=== PATIENT | female | born 1945 | race Caucasian/White ===

== ENCOUNTER 2016-07-21 07:56 | Observation (INO) | payer MEDICARE ==
[~2016-07-21 07:56] MED LIST: AMLO10TA2 PO; CARV25TA PO; CO Q100C7 PO; CYCL1TAB29 PO; DIGO1TAB59 PO; ERGO1CAP30 PO; FLUO60TA PO; FOLI1TAB4 PO; HUMALOG SQ; ISOS30TA15 PO; JANT10TA PO; JANT5TAB PO; MORP1TAB25 PO; OMEG100010 PO; OXYC1TAB36 PO; TUMS500C CHEW
[2016-07-21] MEDS ORDERED: ceFAZolin 2 GM PREMIX 50 ML IV SCH (08:30)
[2016-07-21] MEDS ORDERED: POVIDONE IODINE 5% (ANTISEPSIS KIT) 4 APPLICATIONS EACH NARE PRN (08:45)
[2016-07-21] MEDS ORDERED: CHLORHEXIDINE GLUCONATE 2 % 1 PACK (2 CLOTHS) TOPICAL PRN (08:45)
[2016-07-21] MEDS ORDERED: METOPROLOL TARTRATE 25 MG TAB PO PRN (08:45)
[2016-07-21] MEDS ORDERED: SODIUM CHLORID 0.9% 500 ML IV PRN (08:45)
[2016-07-21] MEDS ORDERED: LACTATED RINGER'S 1000 ML IV PRN (08:45)
[2016-07-21] MEDS ORDERED: INSULIN HUMAN REGULAR 1,000 UNITS/10 ML VIAL SQ PRN (08:45)
[2016-07-21] MEDS ORDERED: SYNT88TA PO (08:57)
[2016-07-21] MEDS ORDERED: NITR0.4D T-DERMAL (08:58)
[2016-07-21] MEDS ORDERED: GABA800T PO (09:11)
[2016-07-21] MEDS ORDERED: ENOX120P SQ (09:11)
[2016-07-21] MEDS ORDERED: IRBE300T11 PO (09:11)
[2016-07-21] MEDS ORDERED: POTA-163 PO (09:11)
[2016-07-21] MEDS ORDERED: SODIUM BICARBONATE 8.4% INJ 50 MEQ/50 ML SYR ONE (10:02)
[2016-07-21] MEDS ORDERED: LIDOCAINE 1%/EPINEPHrine 1:100,000 SOLN 20 ML VIAL ONE (10:02)
[2016-07-21] MEDS ORDERED: BUPIVACAINE/EPINEPHRINE 0.5% 50 ML VIAL ONE (10:04)
[2016-07-21] MEDS ORDERED: BUPIVACAINE/EPINEPHRINE 0.25% PF 30 ML VIAL INFIL ONE (11:26)
[2016-07-21] MEDS ORDERED: ONDANSETRON HCL 4 MG/2 ML VIAL IV PUSH ONE (12:00)
[2016-07-21] MEDS ORDERED: PROPOFOL 200 MG/20 ML AMP IV ONE (12:00)
[2016-07-21] MEDS ORDERED: DO NOT ADM ANY ANTICOAGULANT DRUGS PRN (12:38)
[2016-07-21] MEDS ORDERED: SODIUM CHLORIDE 0.9% FLUSH 10 ML FLUSH IV FLUSH PRN (12:45)
[2016-07-21] MEDS ORDERED: ONDANSETRON HCL 4 MG/2 ML VIAL IV PUSH PRN (12:45)
--- NOTE | 2016-07-21 14:39 | HHI.PR ---
Immediate Post Op Note Procedure Date: Jul 21, 2016 Pre Op Diagnosis: (1) Breast mass, right (2) Mass of right axilla Post Op Diagnosis: Surgeon: Dr. Manan Lloyd Wirer(s): Aisha Fan MS3 Procedure: RIGHT lumpectomy, RIGHT axillary lymph node biopsy Complications: none Specimen(s) removed: RIGHT lumpectomy RIGHT axillary lymph node Estimated blood loss: <15 Anesthesia: LMA Drains: MILTON IVF Patient to: PACU Patient Condition: Aisha Beal Jul 21, 2016 14:39
--- NOTE | 2016-07-21 14:40 | HHI.FF ---
Face to Face Verification Diagnosis: (1) Breast mass, right (2) Mass of right axilla Home Health Nursing Order: Wound care and dressing changes Instructions: MILTON care and monitoring I have seen patient Irena Agee on 07/21/16. My clinical findings support the need for the requested home health care services because: Limited ability to care for self High risk of falls I certify that my clinical findings support that this patient is homebound because: Post-op weakness Aisha Connors [facility] Jul 21, 2016 14:40
[2016-07-21 16:00] VITALS: BP 171/69; PULSE 74; RESP 19; TEMP 97.9; O2SAT 93
[2016-07-21] MEDS ORDERED: CALCIUM CARBONATE 500 MG CHEWABLE TAB CHEW PRN (16:45)
[2016-07-21] MEDS ORDERED: GLUCAGON 1 MG/ML VIAL OTHER PRN (17:00)
[2016-07-21] MEDS ORDERED: DEXTROSE 50% IN WATER 50 ML VIAL(D50) IV PUSH PRN (17:00)
[2016-07-21] MEDS: GABAPENTIN 400 MG CAP PO SCH ×2 (17:08→20:15)
[2016-07-21] MEDS: MORPHINE SULFATE 4 MG/ML INJ IV PUSH PRN ×2 (17:09→22:52)
[2016-07-21] MEDS ORDERED: COENZYME Q10 PO SCH (18:00)
[2016-07-21 20:00] VITALS: BP 145/66; PULSE 70; RESP 18; TEMP 97.8; O2SAT 94
[2016-07-21] MEDS: CARVEDILOL 12.5 MG TAB PO SCH (20:15)
[2016-07-21] MEDS: INSULIN ASPART SUPPLEMENTAL SCALE SQ SCH (20:21)
[2016-07-21] MEDS: SODIUM CHLORIDE 0.9% FLUSH 10 ML FLUSH IV FLUSH SCH (20:24)
[2016-07-22] VITALS: BP 150/65; PULSE 69; RESP 18; TEMP 97.1; O2SAT 95
[2016-07-22 04:00] VITALS: BP 156/67; PULSE 64; RESP 18; TEMP 97.6; O2SAT 95
[2016-07-22] MEDS: INSULIN ASPART SUPPLEMENTAL SCALE SQ SCH (04:52)
[2016-07-22] MEDS: MORPHINE SULFATE 4 MG/ML INJ IV PUSH PRN (04:53)
[2016-07-22 05:35] VITALS: O2SAT 94
[2016-07-22] MEDS ORDERED: LEVOTHYROXINE SODIUM 88 MCG TAB PO SCH (06:00)
[2016-07-22 08:00] VITALS: BP 166/70; PULSE 69; RESP 14; TEMP 97.5; O2SAT 93
[2016-07-22] MEDS: GABAPENTIN 400 MG CAP PO SCH (08:40)
[2016-07-22] MEDS: CARVEDILOL 12.5 MG TAB PO SCH (08:41)
[2016-07-22] MEDS: SODIUM CHLORIDE 0.9% FLUSH 10 ML FLUSH IV FLUSH SCH (08:43)
[2016-07-22] MEDS ORDERED: FLUoxetine HCL 20 MG CAP PO SCH (09:00)
[2016-07-22] MEDS ORDERED: NITROGLYCERIN 0.4 MG/HR PATCH T-DERMAL SCH (09:00)
[2016-07-22] MEDS ORDERED: NON-FORMULARY DRUG (Omega-3 Fatty Acids (Omega 3 1000 mg) 1 CAP) PO SCH (09:00)
[2016-07-22] MEDS ORDERED: POTASSIUM CHLORIDE 20 MEQ CONTROLLED RELEASE TAB PO SCH (09:00)
[2016-07-22] MEDS ORDERED: FOLIC ACID 1 MG TAB PO SCH (09:00)
[2016-07-22] MEDS ORDERED: LOSARTAN 50 MG TAB PO SCH (09:00)
[2016-07-22] MEDS ORDERED: ISOSORBIDE DINITRATE 10 MG TAB PO SCH (09:00)
[2016-07-22] MEDS ORDERED: DIGOXIN 0.125 MG TAB PO SCH (09:00)
[2016-07-22] MEDS ORDERED: CYCLOBENZAPRINE HCL 10 MG TAB PO SCH (09:00)
[2016-07-22 09:52] VITALS: O2SAT 91
[2016-07-23] MEDS ORDERED: REMOVE OLD PATCH T-DERMAL SCH (09:00)
--- NOTE | 2016-07-23 13:47 | MP ---
cc: ROBINA ROLLINS M.D. DATE OF SURGERY: 07/21/2016 PREOPERATIVE DIAGNOSIS: 1. Right breast mass. 2. Right axillary adenopathy. POSTOPERATIVE DIAGNOSIS 1. Right breast mass. 2. Right axillary adenopathy. 3. Probable lipoma, right breast. PROCEDURE PERFORMED 1. Excision right breast mass. 2. Excision right axillary adenopathy. SURGEON Robina Rollins MD. FIBRE COMPOSITE TECHNICIAN NATALIIA Masterson. SECOND FRANCHISE SPECIALIST Kasandra Fan MS 3. ANESTHESIA: General LMA COMPLICATIONS None. INDICATIONS FOR PROCEDURE: Miss Agee is a very pleasant 71 year-old female who has had a right breast mass for several years, she has undergone imaging, this is found to be a solid smooth border mass and therefore observation was recommended. During her most recent film she was noted to have axillary adenopathy. I believe this was on the CT of her chest for her lung disease. Adenopathies concerning for possible malignancy. The patient was referred for biopsy of the right axillary adenopathy. She also requested the right breast mass be excised it had been in for quite some time and she wanted to make sure that this was not malignant. Risks and benefits of right breast lumpectomy and excision of right axillary lymph node was then discussed her and her in the office. They are agreeable. PROCEURE: Details the patient identified, brought to her and placed supine on the table. After adequate IV sedation. After adequate general anesthesia achieved LMA the right breast and axilla was prepped and draped in standard surgical fashion. 0.25% Marcaine injected in the skin and subcutaneous tissue directly overly the right breast mass which was then marked in the holding area. Transverse incision was made. Dissection was carried down to subcutaneous tissue identifying the encapsulated fatty mass consistent with lipoma. This was dissected from surrounding breast tissue using blunt dissection and electrocautery. The mass excised in toto and sent pathology for analysis. Wound was copiously irrigated normal saline solution and closed in two layers using 3-0 and 4-0 Vicryl. Attention now directed right axilla. The right axilla. The patient had a previous axillary lymph node and biopsy many years ago. We therefore used a previous incision proceed. 0.25% percent Marcaine was injected a transverse incision was made. Dissection was carried down in the subcutaneous tissue identifying a markedly enlarged lymph node. This was grasped with Allis clamp and excised from surrounding tissue. There is also several other small nodes in the adjacent area along the scar tissue from a previous biopsy that was also excised. Specimen sent to pathology fresh for analysis. Wound was copiously irrigated with normal saline solution. A 7-Korean Dexter-Friedman drain was inserted through a separate stab wound incision. The wound was then closed in two layers using 3-0 and 4-0 Vicryl. Drains was secured with 3-0 nylon. The patient tolerated suture well as awakened, brought recovery in stable condition. Please note that the CORE [employer]ER certified medical technician assistant was medically necessary due to her specialized surgical skills and knowledge of my surgical technique. MD JAYSON Salomon/emanuel /1:40 PM /1:42 PM ORESTES
[2016-07-27] MEDS ORDERED: ERGOCALCIFEROL (VIT D2) 50,000 UNIT CAP PO SCH (09:00)
== END 2016-07-22 10:54 | disposition home or self-care (01) ==
LOC: HSDC 07:56 → HSDI 12:42 → N07B 15:09
PROVIDERS: ADMIT Surgery Trauma Surgery; ATTEND Surgery Trauma Surgery
DX: N64.1 Fat necrosis of breast (principal); R59.0 Localized enlarged lymph nodes; I25.10 Atherosclerotic heart disease of native coronary artery without angina pectoris; I11.0 Hypertensive heart disease with heart failure; I50.9 Heart failure, unspecified; K21.9 Gastro-esophageal reflux disease without esophagitis; I48.91 Unspecified atrial fibrillation; E03.9 Hypothyroidism, unspecified; J44.9 Chronic obstructive pulmonary disease, unspecified; Z95.1 Presence of aortocoronary bypass graft; Z95.5 Presence of coronary angioplasty implant and graft
CPT/HCPCS: 01610; 19120; 38525; 88304; 88305; G0378; J1815; J2270; J2405; J3010; 88307

== ENCOUNTER 2017-04-19 16:08 | Emergency (ER) | payer MEDICARE ==
[~2017-04-19] VITALS: Ht 157.5 cm; Wt 112.0 kg
[~2017-04-19 16:08] MED LIST changes: +CYCL10TA PO; -CYCL1TAB29 PO; +ENOX120P SQ; -ERGO1CAP30 PO; +GABA800T PO; +IRBE300T11 PO; -ISOS30TA15 PO; +ISOS30TA17 PO; +NITR0.4D T-DERMAL; +POTA-163 PO; +SYNT88TA PO; +VITA500012 PO
[2017-04-19 16:12] VITALS: PULSE 65; RESP 18
[2017-04-19 16:18] VITALS: BP 116/56; PULSE 50; RESP 18; O2SAT 96
[2017-04-19] MEDS ORDERED: SODIUM CHLOR 0.9% 1000 ML INJ 1,000 ML IV ONE (16:45)
[2017-04-19 17:31] LABS: AUTOMATED NEUTROPHIL # 7.6 TH/MM3 (1.8-7.7); BASOPHIL % 0.3 % (0.0-2.0); EOSINOPHIL # 0.1 TH/MM3 (0-0.4); EOSINOPHIL % 1.1 % (0.0-4.0); HEMATOCRIT 36.8 % (35.0-46.0); HEMOGLOBIN 12.2 GM/DL (11.6-15.3); LYMPH % 23.3 % (9.0-44.0); MEAN CELL VOLUME 85.1 FL (80.0-100.0); MEAN CORPUSCULAR HEMOGLOBIN 28.3 PG (27.0-34.0); MEAN CORPUSCULAR HGB CONC 33.3 % (32.0-36.0); MEAN PLATELET VOLUME 9.3 FL (7.0-11.0); MONO % 15.2 % (0.0-8.0); MONOCYTE # 1.9 TH/MM3 (0-0.9); NEUT % 60.1 % (16.0-70.0); PLATELET COUNT 378 TH/MM3 (150-450); RED BLOOD COUNT 4.32 MIL/MM3 (4.00-5.30); RED CELL DISTRIBUTION WIDTH 15.1 % (11.6-17.2); WHITE BLOOD COUNT 12.7 TH/MM3 (4.0-11.0)
[2017-04-19 18:06] LABS: ALT (GPT) 25 U/L (10-53)
[2017-04-19 18:08] LABS: ALBUMIN 3.2 GM/DL (3.4-5.0); ALKALINE PHOSPHATASE 84 U/L (45-117); AST (GOT) 29 U/L (15-37); BICARBONATE 26.5 MEQ/L (21.0-32.0); BLOOD UREA NITROGEN 31 MG/DL (7-18); CALCIUM 8.9 MG/DL (8.5-10.1); CHLORIDE 102 MEQ/L (98-107); CREATININE 1.81 MG/DL (0.50-1.00); GLOMERULAR FILTRATION RATE 27 ML/MIN (>89); GLUCOSE,RANDOM 94 MG/DL (74-106); SODIUM (NA) 135 MEQ/L (136-145); TOTAL BILIRUBIN ADULT 0.5 MG/DL (0.2-1.0); TOTAL PROTEIN 7.2 GM/DL (6.4-8.2)
--- NOTE | 2017-04-19 19:02 | PD ---
HPI Chief Complaint: Neuro Symptoms/ Deficits Time Seen by Provider: 16:23 Travel History International Travel<30 days: No Contact w/Intl Traveler<30days: No Traveled to known affect area: No History of Present Illness HPI 71 year-old woman, presents to the ED with feeling fuzzy, lightheaded, and hypotensive. Patient had nausea vomiting diarrhea for the past 5-6 days. Over the past day or so it's been just diarrhea, is now mostly resolved. Blood pressure is high surgical blood pressure medicines again today. She states this afternoon she began feeling fuzzy and lightheaded. She took her blood pressure was low, 90/68, intermittently now. Symptoms persisted into her feelings got worse and so she called EMS. She was heart rate in the 40s, systolic blood pressure in the 90s for EMS. They gave her half milligram of atropine and some IV fluids. Blood pressure improved. She was brought to the emergency department. No abdominal pain. No fevers. She otherwise has been feeling generally 1 healthy. Symptoms been constant since onset. No other aggravating or alleviating factors. History Past Medical History Narrative Medical A. fib, on warfarin, digoxin, amlodipine Hyperlipidemia Hypertension Diabetes Tetanus Vaccination: > 5 Years Influenza Vaccination: Yes Menopausal: Yes : 2 Para: 2 Social History Alcohol Use: No Tobacco Use: No (the patient quit smoking 20 years ago) Allergies-Medications (Allergen,Severity, Reaction): Coded Allergies: adhesive (Unverified Allergy, Severe, 11/29/16) codeine (Unverified Adverse Reaction, Severe, vomits, 11/29/16) 11/06/15 DENIES ALLERGY fentanyl (Unverified Adverse Reaction, Intermediate, vomits, 11/29/16) *MDRO Multi-Drug Resistant Organism (Verified Adverse Reaction, Unknown, ) 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, 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; (urine) - 05/2012 Reported Meds & Prescriptions Reported Meds & Active Scripts Active Reported Lovenox Inj (Enoxaparin Sodium) 120 Mg/0.8 Ml Syr 120 Mg SQ DAILY Irbesartan 300 Mg Tab 300 Mg PO DAILY Potassium Chloride ER (Potassium Chloride) 20 Meq Tab 20 Meq PO DAILY Gabapentin 800 Mg Tab 800 Mg PO QID Nitro-Dur Patch 24 HR (Nitroglycerin) 0.4 Mg/Hr Patch 0.4 Mg T-DERMAL DAILY Synthroid (Levothyroxine Sodium) 88 Mcg Tab 88 Mcg PO DAILY Tums (Calcium Carbonate (Antacid)) 500 Mg Chew 500 Mg CHEW DAILY PRN Humalog Inj (Insulin Human Lispro) 1,000 Unit/10 Ml Vial 5-25 Units SQ ACHS [employer] INFUSION PUMP Oxycodone-Acetaminophen 10-325 mg Tab 1 Tab PO Q6H PRN Morphine ER (Morphine Sulfate) 30 Mg Tab 30 Mg PO Q8H Co Q10 (Coenzyme Q10 (Ubidecarenone)) 100 Mg Cap 1 Cap PO QID Flexeril (Cyclobenzaprine HCl) 10 Mg Tab 10 Mg PO DAILY [place] 3 1000 mg ([place]-3 Fatty Acids) 1 Cap Cap 1 Cap PO DAILY Fluoxetine (Fluoxetine HCl) 60 Mg Tab 60 Mg PO DAILY Carvedilol 25 Mg Tab 25 Mg PO BID Folate (Folic Acid) 1 Mg Tab 1 Mg PO DAILY Isosorbide Dinitrate 30 Mg Tab 1 Tab PO DAILY Amlodipine (Amlodipine Besylate) 10 Mg Tab 10 Mg PO DAILY Jantoven (Warfarin) 10 Mg Tab 10 Mg PO EVERY OTHER DAY Jantoven (Warfarin) 5 Mg Tab 5 Mg PO EVERY OTHER DAY Ergocalciferol 50,000 Unit Cap 50,000 Units PO Q7D Digitek (Digoxin) 0.125 Mg Tab 2 Tab PO DAILY Review of Systems Except as stated in HPI: all other systems reviewed are Neg Physical Exam Narrative GENERAL: 71 year-old woman, appearing, no acute distress. SKIN: Focused skin assessment warm/dry. HEAD: Atraumatic. Normocephalic. EYES: Pupils equal and round. No scleral icterus. No injection or drainage. ENT: No nasal bleeding or discharge. Mucous membranes pink and moist. NECK: Trachea midline. No JVD. CARDIOVASCULAR: Heart rate a little bit slow, fairly regular, nontoxic. RESPIRATORY: No accessory muscle use. Clear to auscultation. Breath sounds equal bilaterally. GASTROINTESTINAL: Abdomen soft, non-tender, nondistended. Hepatic and splenic margins not palpable. MUSCULOSKELETAL: No obvious deformities. No clubbing. No cyanosis. No edema. NEUROLOGICAL: Awake and alert. No obvious cranial nerve deficits. Motor grossly within normal limits. Normal speech. PSYCHIATRIC: Appropriate mood and affect; insight and judgment normal. Data Data Last Documented VS Vital Signs Date Time Temp Pulse Resp B/P (MAP) Pulse Ox O2 Delivery O2 Flow Rate FiO2 1/3/18 16:18 50 18 116/56 (76) 96 Nasal Cannula 3.00 Orders Orders Sodium Chlor 0.9% 1000 Ml Inj (Ns 1000 M (04/19/17 16:45) Complete Blood Count With Diff (04/19/17 16:41) Comprehensive Metabolic Panel (04/19/17 16:41) Iv Access Insert/Monitor (04/19/17 16:41) Electrocardiogram (04/19/17 16:17) Labs Laboratory Tests Test 04/19/17 17:05 White Blood Count 12.7 TH/MM3 Red Blood Count 4.32 MIL/MM3 Hemoglobin 12.2 GM/DL Hematocrit 36.8 % Mean Corpuscular Volume 85.1 FL Mean Corpuscular Hemoglobin 28.3 PG Mean Corpuscular Hemoglobin Concent 33.3 % Red Cell Distribution Width 15.1 % Platelet Count 378 TH/MM3 Mean Platelet Volume 9.3 FL Neutrophils (%) (Auto) 60.1 % Lymphocytes (%) (Auto) 23.3 % Monocytes (%) (Auto) 15.2 % Eosinophils (%) (Auto) 1.1 % Basophils (%) (Auto) 0.3 % Neutrophils # (Auto) 7.6 TH/MM3 Lymphocytes # (Auto) 3.0 TH/MM3 Monocytes # (Auto) 1.9 TH/MM3 Eosinophils # (Auto) 0.1 TH/MM3 Basophils # (Auto) 0.0 TH/MM3 CBC Comment DIFF FINAL Differential Comment Blood Urea Nitrogen 31 MG/DL Creatinine 1.81 MG/DL Random Glucose 94 MG/DL Total Protein 7.2 GM/DL Albumin 3.2 GM/DL Calcium Level 8.9 MG/DL Alkaline Phosphatase 84 U/L Aspartate Amino Transf (AST/SGOT) 29 U/L Alanine Aminotransferase (ALT/SGPT) 25 U/L Total Bilirubin 0.5 MG/DL Sodium Level 135 MEQ/L Potassium Level 3.9 MEQ/L Chloride Level 102 MEQ/L Carbon Dioxide Level 26.5 MEQ/L Anion Gap 7 MEQ/L Estimat Glomerular Filtration Rate 27 ML/MIN [facility] Medical Decision Making Medical Screen Exam Complete: Yes Emergency Medical Condition: Yes Interpretation(s) My review of EKG: Sinus bradycardia at a rate of 50, normal axis, normal intervals, no acute ischemia. Possible digoxin effect. LABS: CBC is remarkable for mild leukocytosis. CMP is unremarkable. Mildly elevated BUN/creatinine significant increased from baseline. Differential Diagnosis Dehydration, weakness, electrolyte abnormality, digitoxin toxicity, other Narrative Course Medical decision making This 71-year-old woman presents to the emergency department lightheadedness dizziness, hypertension, bradycardia. Could be related to medications. Patient 's been nausea vomiting diarrhea and dehydration to also likely. Possible digoxin toxicity. We'll check did level. Renal functions little bit worsen baseline. Possibly observation versus close outpatient follow-up. Darrel Yadav MD Apr 19, 2017 19:02
[2017-04-19 19:14] VITALS: BP 130/60; PULSE 50; RESP 16; TEMP 97.9; O2SAT 98
[2017-04-19 20:27] VITALS: BP_SYST 119; BP_SYST 125; BP_SYST 134; BP_DIAS 55; BP_DIAS 62; BP_DIAS 63; RESP 15; RESP 18; RESP 20
[2017-04-19] MEDS ORDERED: WARF-23 PO (21:01)
[2017-04-19] MEDS ORDERED: WARF-22 PO (21:01)
[2017-04-19] MEDS ORDERED: ISOS20TA2 PO (21:01)
[2017-04-19 22:00] LABS: BACTERIA, URINE OCC /hpf; BILIRUBIN, URINE NEG (NEG); BLOOD, URINE NEG (NEG); GLUCOSE,URINE NEG (NEG); HYALINE CAST, URINE 30 /lpf (RARE); KETONE, URINE NEG (NEG); MUCUS URINE FEW /lpf (OCC); NITRITE,URINE NEG (NEG); PH, URINE 5.5 (5.0-8.5); SQUAMOUS EPITHELIAL CELL URINE 12 /hpf (0-5); URINE COLOR YELLOW (YELLW/STRAW); URINE LEUKOCYTE ESTERASE NEG (NEG)
--- NOTE | 2017-04-19 22:18 | PD ---
Physical Exam Date Seen by Provider: Apr 19, 2017 Time Seen by Provider: 20:00 Narrative Patient orthostatics hold normal digoxin level is 1.1 within the normal range patient's urine is not infected patient's orthostatics are normal patient feels comfortable going home and following up with her out patient doctor. I feel there is no need for further emergency workup at this time she is safe for discharge close follow-up with her doctor patient reports she had excessive diarrhea and vomiting for 2 days which would explain her fluid loss which responded to a liter of fluid with her pressure rebounded to normal and staying steady entire time the ER as well as to orthostatics discharged home follow-up Data Data Last Documented VS Vital Signs Date Time Temp Pulse Resp B/P (MAP) Pulse Ox O2 Delivery O2 Flow Rate FiO2 04/19/17 20:27 52 15 119/55 (76) 58 18 125/62 (83) 62 20 134/63 (86) 04/19/17 19:14 97.9 98 Nasal Cannula 3.00 Orders Orders Sodium Chlor 0.9% 1000 Ml Inj (Ns 1000 M (04/19/17 16:45) Complete Blood Count With Diff (04/19/17 16:41) Comprehensive Metabolic Panel (04/19/17 16:41) Iv Access Insert/Monitor (04/19/17 16:41) Electrocardiogram (04/19/17 16:17) Digoxin (04/19/17 18:58) Troponin I (04/19/17 19:11) Urinalysis - C+S If Indicated (04/19/17 20:19) Orthostatic Vital Signs (04/19/17 20:20) Labs Laboratory Tests Test 04/19/17 17:05 04/19/17 20:10 White Blood Count 12.7 TH/MM3 Red Blood Count 4.32 MIL/MM3 Hemoglobin 12.2 GM/DL Hematocrit 36.8 % Mean Corpuscular Volume 85.1 FL Mean Corpuscular Hemoglobin 28.3 PG Mean Corpuscular Hemoglobin Concent 33.3 % Red Cell Distribution Width 15.1 % Platelet Count 378 TH/MM3 Mean Platelet Volume 9.3 FL Neutrophils (%) (Auto) 60.1 % Lymphocytes (%) (Auto) 23.3 % Monocytes (%) (Auto) 15.2 % Eosinophils (%) (Auto) 1.1 % Basophils (%) (Auto) 0.3 % Neutrophils # (Auto) 7.6 TH/MM3 Lymphocytes # (Auto) 3.0 TH/MM3 Monocytes # (Auto) 1.9 TH/MM3 Eosinophils # (Auto) 0.1 TH/MM3 Basophils # (Auto) 0.0 TH/MM3 CBC Comment DIFF FINAL Differential Comment Blood Urea Nitrogen 31 MG/DL Creatinine 1.81 MG/DL Random Glucose 94 MG/DL Total Protein 7.2 GM/DL Albumin 3.2 GM/DL Calcium Level 8.9 MG/DL Alkaline Phosphatase 84 U/L Aspartate Amino Transf (AST/SGOT) 29 U/L Alanine Aminotransferase (ALT/SGPT) 25 U/L Total Bilirubin 0.5 MG/DL Sodium Level 135 MEQ/L Potassium Level 3.9 MEQ/L Chloride Level 102 MEQ/L Carbon Dioxide Level 26.5 MEQ/L Anion Gap 7 MEQ/L Estimat Glomerular Filtration Rate 27 ML/MIN Troponin I LESS THAN 0.02 NG/ML Digoxin Level 1.1 NG/ML Urine Color YELLOW Urine Turbidity HAZY Urine pH 5.5 Urine Specific Mena 1.019 Urine Protein 30 mg/dL Urine Glucose (UA) NEG mg/dL Urine Ketones NEG mg/dL Urine Occult Blood NEG Urine Nitrite NEG Urine Bilirubin NEG Urine Urobilinogen LESS THAN 2.0 MG/DL Urine Leukocyte Esterase NEG Urine RBC 1 /hpf Urine WBC 5 /hpf Urine Squamous Epithelial Cells 12 /hpf Urine Bacteria OCC /hpf Urine Hyaline Casts 30 /lpf Urine Mucus FEW /lpf Microscopic Urinalysis Comment CULT NOT INDICATED MDM Supervised Visit with HIEN: No Diagnosis Primary Impression: Hypotension Qualified Codes: I95.9 - Hypotension, unspecified Additional Impression: Dehydration symptoms Disposition: 01 DISCHARGE HOME Condition: Good Wolfgang Avery MD Apr 19, 2017 22:18
--- NOTE | 2017-04-21 23:46 | EKG ---
Date Performed: 04/19/2017 Time Performed: 16:17:06 PTAGE: 71 years EKG: SINUS BRADYCARDIA BORDERLINE ECG PREVIOUS TRACING : 11/09/2015 13.27 DOCTOR: Cristina Mccann Interpretating Date/Time 04/21/2017 23:44:52
== END 2017-04-19 22:35 | disposition home or self-care (01) ==
LOC: NEPC 16:08
DX: I95.9 Hypotension, unspecified (principal); E86.0 Dehydration; I48.91 Unspecified atrial fibrillation; E11.9 Type 2 diabetes mellitus without complications; E78.5 Hyperlipidemia, unspecified; I10 Essential (primary) hypertension; Z79.01 Long term (current) use of anticoagulants; Z87.891 Personal history of nicotine dependence
CPT/HCPCS: 80053; 80162; 81001; 84484; 85025; 93005; 96360; 99284; J7030